=== PATIENT | female | born 1980 | race Caucasian/White ===

== ENCOUNTER 2023-11-26 09:54 | Emergency (ER) | payer OTHER ==
[~2023-11-26] VITALS: Ht 162.6 cm; Wt 85.3 kg
[2023-11-26 10:07] VITALS: BP_SYST 133; PULSE 82; RESP 22; TEMP 98.3; O2SAT 100
[2023-11-26] MEDS ORDERED: HYDR-3917 PO (11:32)
[2023-11-26] MEDS ORDERED: IBUP-1971 PO (11:32)
[2023-11-26] MEDS: IBUPROFEN 800 MG TABLET PO ONE (11:50)
[2023-11-26 11:56] VITALS: BP_SYST 133; PULSE 82; RESP 22; TEMP 98.3; O2SAT 100
[2023-11-26] MEDS: MORPHINE 4 MG INJ. 4 MG/ML VIAL IM ONE (11:56)
[2023-11-26] MEDS: HYDROcodone/ACETAMIN 7.5-325 MG TAB PO ONE (11:56)
== END 2023-11-26 12:02 | disposition home or self-care (01) ==
LOC: SED 09:54
DX: S80.02XA Contusion of left knee, initial encounter (principal); Z88.2 Allergy status to sulfonamides; Z88.8 Allergy status to other drugs, medicaments and biological substances; W22.8XXA Striking against or struck by other objects, initial encounter; Y93.89 Activity, other specified; Y92.89 Other specified places as the place of occurrence of the external cause; Y99.8 Other external cause status
CPT/HCPCS: 99283; 73564; 96372; J2270